=== PATIENT | male | born 1975 | race Caucasian/White ===

== ENCOUNTER 2019-05-20 06:53 | Day surgery (SDC) | payer BC ==
[2019-05-20] MEDS ORDERED: FENTANYL PF 100MCG/2ML VIAL IV ONE (06:54)
[2019-05-20] MEDS ORDERED: KETAMINE HCL 100MG/1ML VIAL INJ ONE (06:54)
[2019-05-20] MEDS ORDERED: DEXAMETHASONE 4 MG/ML 1ML VIAL IVP ONE (06:54)
[2019-05-20] MEDS ORDERED: MIDAZOLAM HCL 2MG/2ML VIAL IV ONE (06:54)
[2019-05-20] MEDS ORDERED: SEVOFLURANE 250 ML INH ONE (06:54)
[2019-05-20] MEDS ORDERED: LIDOCAINE 2% MDV (20MG/ML) 20ML VIAL IV ONE (06:54)
[2019-05-20] MEDS ORDERED: ONDANSETRON HCL IV 4 MG/2 ML VIAL IVP ONE (06:54)
[2019-05-20] MEDS ORDERED: PROPOFOL 10 MG/ML VIAL IV ONE (06:54)
[2019-05-20] MEDS ORDERED: ACETAMINOPHEN 1,000 MG/100 ML BTL IVPB ONE (07:00)
[2019-05-20] MEDS ORDERED: RINGERS SOLUTION,LACTATED 1,000 ML IV ONE ×2 (07:30→08:50)
[2019-05-20] MEDS ORDERED: BUPIVACAINE 0.25% W/EPI MPF 30ML VIAL SQ ONE (09:00)
--- NOTE | 2019-05-20 16:50 | Operative Note ---
DATE OF SURGERY: 05/20/2019 SURGEON: Won Ramirez DO PREOPERATIVE DIAGNOSIS: Left neck mass. POSTOPERATIVE DIAGNOSIS: Left neck mass. OPERATION: Wide excision of left neck mass. INDICATION: The patient is a 44-year-old male who presented with 2-3 cm mass just under his left mandible on his neck. This had the clinical appearance of a probable sebaceous cyst or lipoma. Consent was signed and questions answered. PROCEDURE: The patient was taken to the operating room and placed in a supine position. General anesthesia was administered per the department of anesthesia. The patient's neck was prepped and draped in the usual fashion. The area around the mass anesthetized with a total of 10 mL of 0.25% Sensorcaine with epinephrine. An elliptical incision was made around this. This was carried down to the subcutaneous tissue with cautery. The mass was completely excised. This was then passed off the field. This measured about 4 cm into the subcu. This wound was then closed with 3-0 and 4-0 Vicryl. Dermabond was placed. He was taken to the recovery room in stable condition. Final pathology pending. MTDD
== END 2019-05-20 10:15 | disposition home or self-care (01) ==
LOC: SUR 06:53
PROVIDERS: ATTEND Surgery
DX: L72.0 Epidermal cyst (principal)
CPT/HCPCS: J2405; J3490; J7120